=== PATIENT | female | born 1985 | race Caucasian/White ===

== ENCOUNTER 2019-11-29 15:53 | Emergency (ER) | payer SELFPAY ==
[~2019-11-29] VITALS: Ht 160 cm; Wt 103.4 kg
[2019-11-29 16:03] VITALS: BP 157/95
--- NOTE | 2019-11-29 16:07 | ED GU-Female ---
General Chief Complaint: - Urinary Stated Complaint: PAINFUL URINATION; LOWER BACK PAIN Source: patient Exam Limitations: no limitations History of Present Illness Date Seen by Provider: Nov 29, 2019 Time Seen by Provider: 15:58 Initial Comments The patient is a 34-year-old obese female who presents for evaluation of dysuria and right flank pain which started over the last 2 days. She reports a history of a UTI in the past and also a kidney stone. She denies any gross hematuria, fevers or chills, nausea or vomiting, chest pain or shortness of breath, pelvic pain/bleeding/discharge, dizziness or syncope. She states she has an IUD. Severity/Quality: moderate Location: suprapubic, right flank Radiation: none Activities at Onset: none Associated Symptoms: dysuria, urinary frequency Allergies and Home Medications Allergies Coded Allergies: No Known Drug Allergies (Unverified , 11/29/19) Patient Home Medication List Home Medication List Reviewed: Yes Review of Systems Review of Systems Constitutional: no symptoms reported EENTM: no symptoms reported Respiratory: no symptoms reported Cardiovascular: no symptoms reported Gastrointestinal: abdominal pain (suprapubic) Genitourinary: burning, dysuria, frequency, flank pain, urgency Musculoskeletal: no symptoms reported Skin: no symptoms reported Psychiatric/Neurological: No Symptoms Reported Endocrine: No Symptoms Reported Hematologic/Lymphatic: No Symptoms Reported All Other Systemes Reviewed Negative Unless Noted: Yes Past Wxqilpb-Sgwjlz-Pnerhc Hx Past Med/Social Hx: Reviewed Nursing Past Med/Soc Hx Physical Exam Vital Signs Vital Signs - First Documented 11/29/19 16:03 Temp 36.9 Pulse 113 Resp 16 B/P (MAP) 157/95 (115) Pulse Ox 97 O2 Delivery Room Air Capillary Refill : Height, Weight, BMI Height: '" Weight: lbs. oz. kg; BMI Method: General Appearance: WD/WN, no apparent distress, obese HEENT: PERRL/EOMI, pharynx normal Cardiovascular: regular rate, rhythm, no edema, no JVD, no murmur Respiratory: lungs clear, normal breath sounds, no respiratory distress, no accessory muscle use Gastrointestinal: normal bowel sounds, non tender, soft, no pulsatile mass Back: no vertebral tenderness, CVA tenderness (R); No CVA tenderness (L), No vertebral tenderness Extremities: non-tender, normal inspection, no pedal edema, normal capillary refill Neurologic/Psychiatric: hand meat salter II-XII nml as tested, no motor/sensory deficits, alert, normal mood/affect, oriented x 3 Skin: normal color, warm/dry Focused Exam Lactate Level 11/29/19 17:14: Lactic Acid Level 1.31 Lactic Acid Level Laboratory Tests Test 11/29/19 17:14 Lactic Acid Level 1.31 MMOL/L (0.50-2.00) Progress/Results/Core Measures Suspected Sepsis SIRS Temperature: Pulse: Respiratory Rate: Laboratory Tests 11/29/19 16:15: White Blood Count 20.1H Blood Pressure / Mean: 11/29/19 17:14: Lactic Acid Level 1.31 Laboratory Tests 11/29/19 16:15: Creatinine 0.60, Platelet Count 303, Total Bilirubin 1.1H Results/Orders Lab Results Laboratory Tests Test 11/29/19 15:55 11/29/19 16:15 11/29/19 17:14 Range/Units Urine Color YELLOW Urine Clarity CLOUDY H Urine pH 6.0 5-9 Urine Specific Fletcher 1.020 1.016-1.022 Urine Protein TRACE H NEGATIVE Urine Glucose (UA) NEGATIVE NEGATIVE Urine Ketones NEGATIVE NEGATIVE Urine Nitrite POSITIVE H NEGATIVE Urine Bilirubin NEGATIVE NEGATIVE Urine Urobilinogen 0.2 < = 1.0 MG/DL Urine Leukocyte Esterase 2+ H NEGATIVE Urine RBC (Auto) 2+ H NEGATIVE Urine RBC 5-10 H /HPF Urine WBC TNTC H /HPF Urine Squamous Epithelial Cells RARE /HPF Urine Crystals NONE /LPF Urine Bacteria LARGE H /HPF Urine Casts NONE /LPF Urine Mucus NEGATIVE /LPF Urine Culture Indicated YES White Blood Count 20.1 H 4.3-11.0 10^3/uL Red Blood Count 5.01 4.35-5.85 10^6/uL Hemoglobin 16.5 H 11.5-16.0 G/DL Hematocrit 47 35-52 % Mean Corpuscular Volume 93 80-99 FL Mean Corpuscular Hemoglobin 33 25-34 PG Mean Corpuscular Hemoglobin Concent 36 32-36 G/DL Red Cell Distribution Width 12.2 10.0-14.5 % Platelet Count 303 130-400 10^3/uL Mean Platelet Volume 9.1 7.4-10.4 FL Immature Granulocyte % (Auto) 1 % Neutrophils (%) (Auto) 72 42-75 % Lymphocytes (%) (Auto) 18 12-44 % Monocytes (%) (Auto) 8 0-12 % Eosinophils (%) (Auto) 1 0-10 % Basophils (%) (Auto) 0 0-10 % Neutrophils # (Auto) 14.5 H 1.8-7.8 X 10^3 Lymphocytes # (Auto) 3.6 1.0-4.0 X 10^3 Monocytes # (Auto) 1.6 H 0.0-1.0 X 10^3 Eosinophils # (Auto) 0.3 0.0-0.3 10^3/uL Basophils # (Auto) 0.1 0.0-0.1 10^3/uL Immature Granulocyte # (Auto) 0.2 H 0.0-0.1 10^3/uL Neutrophils % (Manual) 70 % Lymphocytes % (Manual) 16 % Monocytes % (Manual) 8 % Eosinophils % (Manual) 2 % Basophils % (Manual) 0 % Band Neutrophils 3 % Atypical Lymphocytes 1 % Blood Morphology Comment NORMAL Sodium Level 141 135-145 MMOL/L Potassium Level 4.1 3.6-5.0 MMOL/L Chloride Level 103 98-107 MMOL/L Carbon Dioxide Level 23 21-32 MMOL/L Anion Gap 15 H 5-14 MMOL/L Blood Urea Nitrogen 11 7-18 MG/DL Creatinine 0.60 0.60-1.30 MG/DL Estimat Glomerular Filtration Rate > 60 BUN/Creatinine Ratio 18 Glucose Level 123 H 70-105 MG/DL Calcium Level 10.2 H 8.5-10.1 MG/DL Corrected Calcium 9.9 8.5-10.1 MG/DL Total Bilirubin 1.1 H 0.1-1.0 MG/DL Aspartate Amino Transf (AST/SGOT) 33 5-34 U/L Alanine Aminotransferase (ALT/SGPT) 43 0-55 U/L Alkaline Phosphatase 112 40-136 U/L Total Protein 7.9 6.4-8.2 GM/DL Albumin 4.4 3.2-4.5 GM/DL Amylase Level 47 25-125 U/L Lipase 16 8-78 U/L Lactic Acid Level 1.31 0.50-2.00 MMOL/L My Orders Orders - HALLEY HANKINS DO Ua Culture If Indicated (11/29/19 15:56) Urine Bedside (11/29/19 15:56) Cbc With Automated Diff (11/29/19 16:01) Comprehensive Metabolic Panel (11/29/19 16:01) Lipase (11/29/19 16:01) Amylase (11/29/19 16:01) Ct Abdomen/Pelvis Wo (11/29/19 16:01) Ns Iv 1000 Ml (Sodium Chloride 0.9%) (11/29/19 16:15) Ketorolac Injection (Toradol Injection) (11/29/19 16:15) Manual Differential (11/29/19 16:15) Urine Culture (11/29/19 15:55) Ceftriaxone For Iv Use (Rocephin For I (11/29/19 17:15) Lactic Acid Analyzer (11/29/19 17:01) Blood Culture (11/29/19 17:02) Blood Culture (11/29/19 17:35) Medications Given in ED Current Medications Medications Dose Ordered Sig/Stewart Route Start Time Stop Time Status Last Admin Dose Admin Ceftriaxone Sodium 1000 mg/ Sterile Water 10 ml @ 200 mls/hr ONCE ONCE IV 11/29/19 17:15 11/29/19 17:17 DC 11/29/19 17:20 200 MLS/HR Ketorolac Tromethamine 30 mg ONCE ONCE IVP 11/29/19 16:15 11/29/19 16:16 DC 11/29/19 16:33 30 MG Vital Signs/I&O 11/29/19 16:03 Temp 36.9 Pulse 113 Resp 16 B/P (MAP) 157/95 (115) Pulse Ox 97 O2 Delivery Room Air Capillary Refill : Progress Note : Progress Note @1757 - patient updated on lab and imaging results suggesting acute pyelonephritis. No sign of sepsis at this time. She will go home with antibiotics. Advised the patient to follow up with her PCP in the next 2-3 days and to return to the emergency department immediately for new or worsening symptoms. The patient expresses verbal understanding and agreement with the plan and is stable for discharge. Diagnostic Imaging Diagonstic Imaging: CT Comments [facility]. [place], [place] NAME: [facility] REC#: [id number] PT STATUS: REG ER : 1985 PHYSICIAN: HALLEY HANKINS DO ADMIT DATE: 11/29/19/ER FS Draft Date of Exam:11/29/19 CT ABDOMEN/PELVIS WO PROCEDURE: CT abdomen and pelvis without contrast. TECHNIQUE: Multiple contiguous axial images were obtained through the abdomen and pelvis without the use of intravenous contrast. Auto Exposure Controls were utilized during the CT exam to meet ALARA standards for radiation dose reduction. INDICATION: Right flank pain. COMPARISON: None available. FINDINGS: The visualized lung bases are clear. Cholecystectomy. The unenhanced liver, spleen, adrenal glands and pancreas are unremarkable. The right kidney and ureter are unremarkable. Mild left perinephric and left periureteral fat stranding. Mild left hydroureter. No definite obstructing calculus. No aneurysmal dilatation of the abdominal aorta. The appendix is unremarkable. Intrauterine device is in place within the central aspect of the uterus. Adnexal structures are unremarkable for age. No bowel obstruction or pneumatosis. No significant adenopathy, free air or free fluid within the abdomen or pelvis. No acute osseous abnormality. IMPRESSION: 1. Left perinephric and periureteral fat stranding with associated mild left hydroureter. Findings are felt to relate to an underlying infectious or inflammatory process such as pyelonephritis. Recommend correlation with urinary analysis. Mild left hydroureter may relate to a recently passed stone. No definite ureterolith identified at this time. 2. Cholecystectomy. 3. Intrauterine device is in place. Dictated on workstation # [id number] Dict: 11/29/19 1629 Trans: 11/29/19 1730 [facility] [id number] Interpreted by: JAKE OCHOA MD Electronically signed by: Departure Impression Primary Impression: Acute pyelonephritis Additional Impression: Acute UTI Disposition: 01 HOME, SELF-CARE Condition: Stable Departure-Patient Inst. Decision time for Depature: 17:58 Ref[place]: [facility] [place]ructions: Kidney Infection (DC), Urinary Tract Infection, Adult (DC) Add. Discharge Instructions: Take the prescribed medication as directed. Follow-up with your doctor in the n ext 2-3 days. Return to the emergency Department immediately for new or worsening symptoms. Drink plenty of water to stay well-hydrated. Scripts Cephalexin (Keflex) 500 Mg Capsule 500 MG PO BID for 10 Days, #20 CAP Prov: HALLEY HANKINS DO 11/29/19 HALLEY HANKINS DO Nov 29, 2019 16:07
[2019-11-29] MEDS ORDERED: KETOROLAC 30 MG/ML VIAL IVP ONE (16:15)
[2019-11-29] MEDS ORDERED: NS IV 1000 ML 1,000 ML IV SCH (16:15)
[2019-11-29 16:39] LABS: BASOPHILS % (AUTO) 0 % (0-10); EOSINOPHILS % (AUTO) 1 % (0-10); HEMATOCRIT 47 % (35-52); HEMOGLOBIN 16.5 G/DL (11.5-16.0); LYMPHOCYTES # (AUTO) 3.6 X 10^3 (1.0-4.0); LYMPHOCYTES % (AUTO) 18 % (12-44); MEAN CORPUSCULAR HEMOGLOBIN 33 PG (25-34); MEAN CORPUSCULAR HGB CONC 36 G/DL (32-36); MEAN CORPUSCULAR VOLUME 93 FL (80-99); MEAN PLATELET VOLUME 9.1 FL (7.4-10.4); MONOCYTES % (AUTO) 8 % (0-12); NEUTROPHILS # (AUTO) 14.5 X 10^3 (1.8-7.8); NEUTROPHILS % (AUTO) 72 % (42-75); PLATELET COUNT 303 10^3/uL (130-400); WHITE BLOOD COUNT 20.1 10^3/uL (4.3-11.0)
[2019-11-29 16:40] LABS: BASOPHILS # (AUTO) 0.1 10^3/uL (0.0-0.1); EOSINOPHILS # (AUTO) 0.3 10^3/uL (0.0-0.3); MONOCYTES # (AUTO) 1.6 X 10^3 (0.0-1.0)
[2019-11-29 16:42] LABS: CLARITY,URINE CLOUDY; COLOR,URINE YELLOW
[2019-11-29 16:45] LABS: BACTERIA,URINE LARGE /HPF; BILIRUBIN,URINE NEGATIVE (NEGATIVE); GLUCOSE, URINE (UA) NEGATIVE (NEGATIVE); KETONES,URINE NEGATIVE (NEGATIVE); LEUKOCYTE ESTERASE ,URINE 2+ (NEGATIVE); NITRITE,URINE POSITIVE (NEGATIVE); PROTEIN,URINE TRACE (NEGATIVE); SQUAMOUS EPITHELIAL CELL,UR RARE /HPF; WBC,URINE TNTC /HPF
[2019-11-29 16:54] LABS: ALANINE AMINOTRANSFERASE 43 U/L (0-55); ALBUMIN 4.4 GM/DL (3.2-4.5); ALKALINE PHOSPHATASE 112 U/L (40-136); BILIRUBIN,TOTAL 1.1 MG/DL (0.1-1.0); BUN/CREATININE RATIO 18; CALCIUM 10.2 MG/DL (8.5-10.1); CARBON DIOXIDE 23 MMOL/L (21-32); CHLORIDE 103 MMOL/L (98-107); GFR ESTIMATED > 60; GLUCOSE 123 MG/DL (70-105); POTASSIUM 4.1 MMOL/L (3.6-5.0); SODIUM 141 MMOL/L (135-145); TOTAL PROTEIN 7.9 GM/DL (6.4-8.2)
[2019-11-29 16:55] LABS: AMYLASE 47 U/L (25-125); LIPASE 16 U/L (8-78)
[2019-11-29 16:59] LABS: ATYPICAL LYMPHOCYTES 1 %; BAND NEUTROPHILS 3 %; BASOPHILS % (MANUAL) 0 %; EOSINOPHILS % (MANUAL) 2 %; LYMPHOCYTES % (MANUAL) 16 %; MONOCYTES % (MANUAL) 8 %; NEUTROPHILS % (MANUAL) 70 %; RBC MORPH NORMAL
[2019-11-29] MEDS ORDERED: cefTRIAXone FOR IV USE 1,000 MG in WATER (STERILE) FOR INJECTION 10 ML IV ONE (17:15)
--- NOTE | 2019-11-29 17:32 | Diagnostic Imaging Report ---
PROCEDURE: CT abdomen and pelvis without contrast. TECHNIQUE: Multiple contiguous axial images were obtained through the abdomen and pelvis without the use of intravenous contrast. Auto Exposure Controls were utilized during the CT exam to meet ALARA standards for radiation dose reduction. INDICATION: Right flank pain. COMPARISON: None available. FINDINGS: The visualized lung bases are clear. Cholecystectomy. The unenhanced liver, spleen, adrenal glands and pancreas are unremarkable. The right kidney and ureter are unremarkable. Mild left perinephric and left periureteral fat stranding. Mild left hydroureter. No definite obstructing calculus. No aneurysmal dilatation of the abdominal aorta. The appendix is unremarkable. Intrauterine device is in place within the central aspect of the uterus. Adnexal structures are unremarkable for age. No bowel obstruction or pneumatosis. No significant adenopathy, free air or free fluid within the abdomen or pelvis. No acute osseous abnormality. IMPRESSION: 1. Left perinephric and periureteral fat stranding with associated mild left hydroureter. Findings are felt to relate to an underlying infectious or inflammatory process such as pyelonephritis. Recommend correlation with urinary analysis. Mild left hydroureter may relate to a recently passed stone. No definite ureterolith identified at this time. 2. Cholecystectomy. 3. Intrauterine device is in place. Dictated by: Dictated on workstation # [id number]
[2019-11-29] MEDS ORDERED: CEPH-507 PO (17:59)
== END 2019-11-29 18:06 | disposition home or self-care (01) ==
LOC: EDUNIT# 15:53 → ER FS 15:55
DX: N12 Tubulo-interstitial nephritis, not specified as acute or chronic (principal); N39.0 Urinary tract infection, site not specified; E66.9 Obesity, unspecified
CPT/HCPCS: 36415; 74176; 80053; 81000; 82150; 83605; 83690; 84703; 85007; 85027; 87040; 87077; 87088